=== PATIENT | male | born 2005 | race Asian ===

== ENCOUNTER 2024-05-12 13:42 | Observation (INO) ==
--- NOTE | 2024-05-12 14:21 | Emergency Department Note ---
History of Present Illness General Chief complaint: Abdominal Pain Stated complaint: SHARP ABD PAIN Time Seen by Provider: 05/12/24 14:03 Source: patient, RN notes reviewed, old records reviewed (Old medical records were attempted to be reviewed but there are no old records at this hospital. Nurse's notes were reviewed and I agree with.) and friends (Friends who are at the bedside) Mode of arrival: ambulatory Limitations: no limitations History of Present Illness Maximum Pain Intensity: 9 This patient 18-year-old male comes in with abdominal pain in the right groin he said he had GERD last night and then developed right lower abdominal/groin pain he says is not his testicle is no swelling of his testicle. He has had decreased appetite. no vomiting his bowels have been normal. no blood or melena in his stool . no dysuria or hematuria .he says it does feel little bit better when he lays still. Is worse with movement. No trauma or injury. No history of surgeries because his appendix. Past Med/Surg History Problem List (Updated 05/12/24 @ 15:59 by Bayron Andrade MD) Right groin pain (Acute) Abdominal pain (Acute) Incarcerated right inguinal hernia (Acute) Social History Smoking Status: Never smoker Preferred Language: Thai Feels Safe at Home: Yes Immunizations: Past med history denies any surgeries denies past medical history. Allergiesno known drug allergy Social historydoes not smoke or drink or use drugs. He is a [employer] student Review of Systems A total of 10 systems reviewed and were otherwise negative Physical Exam Vital Signs Vital Signs - 24 hr 05/12/24 13:45 Temperature 36.0 C L Temperature Source Temporal Artery Scan Pulse Rate 85 Pulse Rhythm Regular Pulse Strength Normal Respiratory Rate 20 Respiratory Effort / Characteristics Non-Labored Spontaneous Respiratory Depth Normal Respiratory Pattern Regular Blood Pressure 144/88 H Blood Pressure Mean 106 Blood Pressure Position Sitting Oxygen Delivery Method Room Air Sepsis Recent Fever Within 48 Hours No Sepsis New/Unexplained Change in Mental Status No Sepsis Action Taken by Nursing No Action Required General: Well developed well nourished young male who appears in no acute distress, breathing comfortably on room air. Normal speech HEENT: Normal cephalic atraumatic. Pupils are equal round and reactive to light. Extraocular movements are intact. Oropharynx is pink with moist mucous membranes. No swelling of the mouth lips or tongue. Neck: Supple with a midline trachea. No meningeal signs or stiffness, no JVD or bruits. No Stridor. Chest: Clear to auscultation bilaterally. No wheezes or rhonchi. No increased work of breathing. Heart: Regular rate and rhythm without murmurs or gallops. Abdomen: Soft, he is moderately tender in the right lower quadrant and to the groin. Nondistended without rebound guarding or rigidity. In the groin he has fullness on the right when compared to the left consistent with a hernia. It is very tender. it is not red or warm with gentle pressure, it does not reduce. The testicles are not tender or swollen themselves. Extremities: No cyanosis clubbing or edema. No calf tenderness or assymetry Spine/Back. Non tender to palpation. No CVA tenderness Skin: Good turgor without rashes. Neurologic exam: Nonfocal moving all 4 extremity symmetrically Course Administered Medications Discontinued Medications Sodium Chloride (Nss) 1,000 mls @ 999 mls/hr IV .Q1H1M ONE Stop: 05/12/24 15:16 Last Admin: 05/12/24 15:22 Dose: 999 mls/hr Documented By: CEF Cefazolin Sodium (Ancef 2000mg) 2,000 mg in 15 mls @ 3.75 mls/min IV ONCE ONE; Protocol Stop: 05/12/24 16:29 Last Admin: 05/12/24 16:20 Dose: 3.75 mls/min Documented By: [id number] Ioversol (Optiray 320 100ml) 90 ml IV ONCE ONE Stop: 05/12/24 15:09 Last Admin: 05/12/24 15:08 Dose: 90 ml Documented By: EDK Morphine Sulfate (Morphine Sulfate 2 Mg/Ml Carp) 2 mg IV NOW STA Stop: 05/12/24 14:17 Last Admin: 05/12/24 14:23 Dose: 2 mg Documented By: CEF Ondansetron HCl (Ondansetron Inj 2 Mg/Ml 2 Ml Vial) 4 mg IV NOW STA Stop: 05/12/24 14:17 Last Admin: 05/12/24 14:26 Dose: 4 mg Documented By: CEF Medical Decision Making Differential Diagnosis Hernia, incarcerated hernia, testicular torsion or abnormality, appendicitis, abscess Medical Records Attestation: I reviewed the patient's medical records. Home Medications Current Medication List: was personally reviewed by me Laboratory Data Attestation: I reviewed the patient's lab results. 05/12/24 13:55 05/12/24 13:55 Lab Results 05/12/24 05/12/24 Range/Units 13:55 15:20 WBC 9.38 (4.8-10.8) K/ul RBC 5.34 (4.70-6.10) M/uL Hgb 15.0 (14.0-18.0) g/dl Hct 43.4 (42.0-52.0) % MCV 81.3 (80.0-100.0) fL MCH 28.1 (25.0-34.0) pg MCHC 34.6 (32.0-36.0) g/dL RDW Std Deviation 34.7 L (36.4-46.3) fL RDW Coeff of Ori 11.9 (11.5-14.5) % Plt Count 389 (130-400) K/uL MPV 8.9 L (9.4-12.4) fL Immature Gran % (Auto) 0.4 % Neut % (Auto) 67.2 % Lymph % (Auto) 20.5 % [place] % (Auto) 7.0 % Eos % (Auto) 4.6 % Baso % (Auto) 0.3 % Neut # (Auto) 6.30 (1.40-6.50) K/uL Lymph # (Auto) 1.92 (1.20-3.40) K/uL [place] # (Auto) 0.66 H (0.11-0.59) K/uL Eos # (Auto) 0.43 (0.00-0.50) K/uL Baso # (Auto) 0.03 (0.00-0.20) K/uL Immature Gran # (Auto) 0.04 (0.01-0.20) K/uL Sodium 140 (136-145) mmol/L Potassium 3.7 (3.5-5.1) mmol/L Chloride 102 (98-107) mmol/L Carbon Dioxide 31 (21-32) mmol/L Anion Gap 7 (3-11) BUN 7 (6-23) mg/dl Creatinine 0.82 (0.6-1.4) mg/dl Est Cr Clr Drug Dosing 149.6 ml/min eGFR 129.77 BUN/Creatinine Ratio 8.5 L (10-20) Glucose 105 H (70-99(Fasting)) mg/dl Calcium 9.2 (8.6-10.3) mg/dl Total Bilirubin 0.8 (0.2-1.0) mg/dl AST 20 (13-39) U/L ALT 22 (7-52) U/L Alkaline Phosphatase 62 (34-104) U/L Total Protein 7.7 (6.0-8.3) gm/dl Albumin 4.7 (3.4-5.0) gm/dl Globulin 3.0 (2.5-4.0) gm/dl Albumin/Globulin Ratio 1.6 (0.9-2) Lipase 15 (11-82) U/L Urine Color Yellow Urine Appearance Clear (Clear) Urine pH 8.5 H (4.5-7.5) Ur Specific [place] 1.022 (1.000-1.030) Urine Protein Negative (Negative) Urine Glucose (UA) Negative (Negative) Urine Ketones Negative (Negative) Urine Blood Negative (Negative) Urine Nitrite Negative (Negative) Urine Bilirubin Negative (Negative) Urine Urobilinogen Negative (Negative) Ur Leukocyte Esterase Negative (Negative) Imaging Data Attestation: I personally reviewed and interpreted this imaging study as follows: My Impression: CAT scan of the abdomen and pelvisthere is an incarcerated hernia seen on the right Radiologist's Impression: Abdomen/Pelvis CT 05/12/24 14:16 CT OF THE ABDOMEN AND PELVIS WITH CONTRAST CLINICAL HISTORY: hernia/rt groin pain COMPARISON STUDY: None. TECHNIQUE: Following IV administration of 90 mL of Optiray, axial images of the abdomen and pelvis were obtained from the lung bases to the proximal femurs. Images were reviewed in the axial, sagittal, and coronal planes. IV contrast was administered without complication. Automated exposure control was utilized for the study. A dose lowering technique was utilized adhering to the principles of ALARA. CT DOSE: 1161.48 mGy.cm FINDINGS: Lung bases are unremarkable. No pneumatosis cirrhosis, free air or portal venous gas is present. Liver, spleen, adrenal glands, left kidney and pancreas are normal. There is no biliary or pancreatic ductal dilatation. There is no peripancreatic or pericholecystic infiltration. A 3 mm right lower pole renal calculus is present. There are no ureteral calculi. There is no hydronephrosis. Caliber and wall thickness of small and large bowel are normal. The appendix is normal. Trace fluid within the pelvis is present. A moderate- sized fat-containing right inguinal hernia is noted. There is moderate stranding as well as a small amount of fluid within the hernia sac, extending into the right hemiscrotum. IMPRESSION: 1. Moderate size fat-containing right inguinal hernia. Inflammation of the herniated fat and a small amount of fluid within the hernia sac. The findings suggest strangulation of the herniated fat. No bowel within the hernia sac. 2. Normal appendix. No bowel obstruction. No bowel wall thickening. 3. Trace fluid within the pelvis. 4. 3 mm right renal calculus. No ureteral calculi or hydronephrosis. ACT 112: Negative or not required by law. Electronically signed by: Baron Garza M.D. 05/12/2024 3:30 PM MDM Narrative This patient comes in as described above. he has been having abdominal pain in the right lower quadrant and groin. When I examine his groin he has fullness on the right concerning for hernia. It does not reduce with gentle force. IV access was established hydrated with 1 L IV normal saline bolus . he was kept n.p.o. labs were obtained. I ordered a CAT scan as well he also paged surgery early on to get them involved as well. I discussed the case with Dr. Browne. He did promptly come and see the patient in the ER. In the meantime the CAT scan did confirm the diagnosis of incarcerated hernia. He has normal renal function. There is no significant electrolyte or metabolic abnormalities. He has normal white count and he is not anemic. He has received IV fluids. Dr. Browne is going to take him to the operating room for surgery to reduce and fix the hernia. The patient was taken emergently to the OR for surgery. Impression & Plan Incarcerated right inguinal hernia, Abdominal pain, Right groin pain Discharge Plan Visit Data Chief Complaint: Abdominal Pain Stated Complaint: SHARP ABD PAIN ED Provider: Bayron Andrade Discharge Problem: Incarcerated right inguinal hernia, Abdominal pain, Right groin pain Patient Disposition: Admitted As Inpatient Discharge Instructions Interventions: ED Discharge Assessment Last Done: 05/12/24 15:37 Discharge Problem: Abdominal pain Qualifiers: Abdominal location: right lower quadrant Qualified Code(s): R10.31 - Right lower quadrant pain
[2024-05-12] MEDS: MoRPHine SULFATE 2 MG/ML CARP IV STA (14:23)
[2024-05-12] MEDS: ONDANSETRON INJ 2 MG/ML 2 ML VIAL IV STA (14:26)
[2024-05-12 14:29] LABS: Basophils # (auto) 0.03 K/uL (0.00-0.20); Basophils % (auto) 0.3 %; Eosinophils # (auto) 0.43 K/uL (0.00-0.50); Eosinophils % (auto) 4.6 %; Hematocrit (blood only) 43.4 % (42.0-52.0); Immature Granulocytes # (auto) 0.04 K/uL (0.01-0.20); Immature Granulocytes % (auto) 0.4 %; Lymphocytes # (auto) 1.92 K/uL (1.20-3.40); Lymphocytes % (auto) 20.5 %; Mean Corpuscular Hemoglobin 28.1 pg (25.0-34.0); Mean Corpuscular Hgb Conc 34.6 g/dL (32.0-36.0); Mean Corpuscular Volume 81.3 fL (80.0-100.0); Mean Platelet Volume 8.9 fL (9.4-12.4); Monocytes # (auto) 0.66 K/uL (0.11-0.59); Neutrophils % (auto) 67.2 %; Platelet Count 389 K/uL (130-400); RDW Coefficient of Variation 11.9 % (11.5-14.5); RDW Standard Deviation 34.7 fL (36.4-46.3); Red Blood Count 5.34 M/uL (4.70-6.10); White Blood Count 9.38 K/ul (4.8-10.8)
[2024-05-12 14:35] LABS: Albumin Globulin Ratio 1.6 (0.9-2); Albumin Level 4.7 gm/dl (3.4-5.0); BUN Creatinine Ratio 8.5 (10-20); Bilirubin,Total 0.8 mg/dl (0.2-1.0); Calcium 9.2 mg/dl (8.6-10.3); Creatinine Clr Calc Pharmacy 149.6 ml/min; Potassium 3.7 mmol/L (3.5-5.1); Total Protein 7.7 gm/dl (6.0-8.3)
[2024-05-12] MEDS: OPTIRAY 320 100ml IV ONE (15:08)
[2024-05-12] MEDS: SODIUM CHLORIDE 0.9% 1,000 ML IV ONE (15:22)
--- NOTE | 2024-05-12 15:33 | CT Scan Report ---
CT OF THE ABDOMEN AND PELVIS WITH CONTRAST CLINICAL HISTORY: hernia/rt groin pain COMPARISON STUDY: None. TECHNIQUE: Following IV administration of 90 mL of Optiray, axial images of the abdomen and pelvis we re obtained from the lung bases to the proximal femurs. Images were reviewed in the axial, sagittal, and coronal planes. IV contrast was administered without complication. Automated exposure control wa s utilized for the study. A dose lowering technique was utilized adhering to the principles of ALARA . CT DOSE: 1161.48 mGy.cm FINDINGS: Lung bases are unremarkable. No pneumatosis cirrhosis, free air or portal venous gas is pre sent. Liver, spleen, adrenal glands, left kidney and pancreas are normal. There is no biliary or panc reatic ductal dilatation. There is no peripancreatic or pericholecystic infiltration. A 3 mm right lo wer pole renal calculus is present. There are no ureteral calculi. There is no hydronephrosis. Calibe r and wall thickness of small and large bowel are normal. The appendix is normal. Trace fluid within the pelvis is present. A moderate-sized fat-containing right inguinal hernia is noted. There is moder ate stranding as well as a small amount of fluid within the hernia sac, extending into the right martin scrotum. IMPRESSION: 1. Moderate size fat-containing right inguinal hernia. Inflammation of the herniated fat and a small amount of fluid within the hernia sac. The findings suggest strangulation of the herniated fat. No fito wel within the hernia sac. 2. Normal appendix. No bowel obstruction. No bowel wall thickening. 3. Trace fluid within the pelvis. 4. 3 mm right renal calculus. No ureteral calculi or hydronephrosis. ACT 112: Negative or not required by law. Electronically signed by: Baron Garza M.D. 05/12/2024 3:30 PM
[2024-05-12] MEDS ORDERED: ePHEDrine sulfate 50 MG/ML AMP IV PRN ×2 (15:37→16:30)
[2024-05-12] MEDS ORDERED: ONDANSETRON INJ 2 MG/ML 2 ML VIAL IV PRN ×2 (15:37→16:30)
[2024-05-12] MEDS ORDERED: fentaNYL citrate PF 100 MCG/2 ML VIAL IV PRN ×2 (15:37→16:30)
[2024-05-12] MEDS ORDERED: ATROPINE SULFATE 0.1 MG/ML 10ML SYR IV PRN ×2 (15:37→16:30)
--- NOTE | 2024-05-12 15:37 | Anesthesiology Consultation ---
Date of Service May 12, 2024 Assessment & Plan Chart Review Chart Review: Acceptable Risk for Surgery and Patient NOT seen in Pre Admission Testing Consults Requested none History Surgery Operation Date: 05/12/24 16:00 Proposed Procedures p Open Right Inguinal Hernia Repair(Right) - Evangelist Browne, Height/Weight Height: 5 ft 10 in Weight: 85.6 kg Social History Smoking Status: Never smoker Physical Exam Vital Signs Last Vital Signs Temp 36.0 C L 05/12/24 13:45 Pulse 85 05/12/24 13:45 Resp 20 05/12/24 13:45 BP 144/88 H 05/12/24 13:45 O2 Del Method Room Air 05/12/24 13:45 Testing Laboratory Results 05/12/24 13:55 05/12/24 13:55
[2024-05-12] MEDS ORDERED: fentaNYL citrate PF 100 MCG/2 ML VIAL ONE (15:40)
[2024-05-12] MEDS ORDERED: MIDAZOLAM HCL 1 MG/ML 2ML VIAL ONE (15:40)
[2024-05-12] MEDS ORDERED: ARTIFICIAL TEARS OP OINT 3.5 GM TUBE ONE (15:41)
[2024-05-12 15:45] LABS: Appearance Urine Clear (Clear); Bilirubin Urine Negative (Negative); Blood Urine Negative (Negative); Color Urine Yellow; Glucose Urine UA Negative (Negative); Ketones Urine Negative (Negative); Leukocyte Esterase Urine Negative (Negative); Nitrite Urine Negative (Negative); Protein Urine Negative (Negative); Specific Gravity Urine 1.022 (1.000-1.030); Urobilinogen Urine Negative (Negative); pH Urine 8.5 (4.5-7.5)
[2024-05-12] MEDS ORDERED: ROCURONIUM BROMIDE 10 MG/ML 5 ML VIAL IV ONE (15:45)
[2024-05-12] MEDS ORDERED: SUCCINYLCHOLINE CHLORIDE 20 MG/ML 10 ML VIAL IV ONE ×2 (15:45)
[2024-05-12] MEDS ORDERED: PROPOFOL IV EMULSION 10 MG/ML 20 ML VIAL IV ONE (15:45)
--- NOTE | 2024-05-12 15:47 | History & Physical Report ---
Date of Service May 12, 2024 Assessment & Plan (1) Incarcerated right inguinal hernia: Plan: Patient with right groin pain since last night CT scan reading Moderate size fat-containing right inguinal hernia. Inflammation of the herniated fat and a small amount of fluid within the hernia sac. The findings suggest strangulation of the herniated fat. No bowel within the hernia sac. VSS , WBC wnl , Visable non reducible RIH. Recommending urgent surgical intervention in the form of an open right inguinal hernia repair with mesh with Dr. Browne. Risks and benefits reviewed, patient would like to proceed with surgical intervention. He will be admitted to surgical service post procedure for overnight observation and pain control. Patient seen with Dr. Browne as above. pt extremely uncomfortable. unable to reduce the hernia. discussed options/risks ( bleeding/infection/blood clots/injury to other organs etc...) questions answered. will proceed brooklynn with open RIH repair with mesh History of Present Illness Chief Complaint: Right groin pain Primary Care Provider: [facility] Patient is a pleasant 18 yo male with PMH GERD, that presented to [facility] ER today with c/o Right groin pain that started last night at 2100. He reports he has been taking OTC oral pain medication without relieve. No emesis, some nausea, denies fever/chills, CP, SOB. Developed a dry cough/dry mouth while in the ER. Denies prior surgical hx and has been NPO since last night. Past Med/Surg History Problem List (Updated 05/12/24 @ 15:44 by TAB Denny) Incarcerated right inguinal hernia Social History Smoking Status: Never smoker Preferred Language: Persian Feels Safe at Home: Yes Review of Systems Constitutional: no fever and no chills Eyes: no problem reported Respiratory: + cough; no dyspnea Cardiovascular: no chest pain Gastrointestinal: + nausea; no abdominal pain, no vomiting and no change in bowel habits Musculoskeletal: no muscle weakness Integumentary: no rash Psychiatric: no confusion Physical Exam Constitutional: cooperative; no acute distress and + uncomfortable Respiratory: normal respiratory effort and able to speak in complete sentences; no respiratory distress Cardiovascular: Rate/Rhythm: regular rate Gastrointestinal (Abdomen): Inspection/Auscultation: + visible herniation (Right inguinal ); abdomen not distended Percussion/Palpation: abdomen soft; no guarding Musculoskeletal: no cyanosis or clubbing, extremities motor strength 5/5 Skin: no rashes, warm and dry Psychiatric: Orientation: alert and oriented x 3 Results & Data Results & Data Vital Signs (Past 12 Hours) Vital Signs Temp Pulse Resp BP O2 Del Method 05/12/24 13:45 96.8 F L 85 20 144/88 H Room Air Diagnostic Findings [place], [place] [phone] CT Scan Report Patient: MUSA ANGELES Admit Date: 05/12/24 MR#: [id number] Address[address]: [address] Ac[address] ID:[id number] Address2: [address] Date: 2005 [facility] Zip: [place] [address] Age: 18 Location: ED Sex: M Room/Bed: Att Phy: Diagnosis: SHARP ABD PAIN Bridget Phy: [facility] Service Date: 05/12/24 Fam Phy: Interpreting Phy: Baron Garza MDAit Phy: Ordering Phy: Bayron Andrade M.D. cc: ~ CT OF THE ABDOMEN AND PELVIS WITH CONTRAST CLINICAL HISTORY: hernia/rt groin pain COMPARISON STUDY: None. TECHNIQUE: Following IV administration of 90 mL of Optiray, axial images of the abdomen and pelvis were obtained from the lung bases to the proximal femurs. Images were reviewed in the axial, sagittal, and coronal planes. IV contrast was administered without complication. Automated exposure control was utilized for the study. A dose lowering technique was utilized adhering to the principles of ALARA. CT DOSE: 1161.48 mGy.cm FINDINGS: Lung bases are unremarkable. No pneumatosis cirrhosis, free air or portal venous gas is present. Liver, spleen, adrenal glands, left kidney and pancreas are normal. There is no biliary or pancreatic ductal dilatation. There is no peripancreatic or pericholecystic infiltration. A 3 mm right lower pole renal calculus is present. There are no ureteral calculi. There is no hydronephrosis. Caliber and wall thickness of small and large bowel are normal. The appendix is normal. Trace fluid within the pelvis is present. A moderate- sized fat-containing right inguinal hernia is noted. There is moderate stranding as well as a small amount of fluid within the hernia sac, extending into the right hemiscrotum. IMPRESSION: 1. Moderate size fat-containing right inguinal hernia. Inflammation of the herniated fat and a small amount of fluid within the hernia sac. The findings suggest strangulation of the herniated fat. No bowel within the hernia sac. 2. Normal appendix. No bowel obstruction. No bowel wall thickening. 3. Trace fluid within the pelvis. 4. 3 mm right renal calculus. No ureteral calculi or hydronephrosis. ACT 112: Negative or not required by law. Electronically signed by: Baron Garza M.D. 05/12/2024 3:30 PM Dictated: 05/12/241523 Transcribed: 05/12/241523 CBC w Diff Results Results CBC w Diff Results: RBC 5.34 M/uL (4.70-6.10) 05/12/24 WBC 9.38 K/ul (4.8-10.8) 05/12/24 Hgb 15.0 g/dl (14.0-18.0) 05/12/24 Hct 43.4 % (42.0-52.0) 05/12/24 MCV 81.3 fL (80.0-100.0) 05/12/24 MCH 28.1 pg (25.0-34.0) 05/12/24 MCHC 34.6 g/dL (32.0-36.0) 05/12/24 RDW Standard Deviation 34.7 fL (36.4-46.3) L 05/12/24 RDW Coefficient of Variation 11.9 % (11.5-14.5) 05/12/24 Plt Count 389 K/uL (130-400) 05/12/24 MPV 8.9 fL (9.4-12.4) L 05/12/24 Neutrophils (%) (Auto) 67.2 % 05/12/24 Lymphocytes (%) (Auto) 20.5 % 05/12/24 Monocytes # (Auto) 0.66 K/uL (0.11-0.59) H 05/12/24 Eosinophils # (Auto) 0.43 K/uL (0.00-0.50) 05/12/24 Immature Granulocyte % (Auto) 0.4 % 05/12/24 Neutrophils # (Auto) 6.30 K/uL (1.40-6.50) 05/12/24 Lymphocytes # (Auto) 1.92 K/uL (1.20-3.40) 05/12/24 Monocytes # (Auto) 0.66 K/uL (0.11-0.59) H 05/12/24 Eosinophils # (Auto) 0.43 K/uL (0.00-0.50) 05/12/24 Basophils # (Auto) 0.03 K/uL (0.00-0.20) 05/12/24 Immature Granulocyte # (Auto) 0.04 K/uL (0.01-0.20) 4 PG Care Time/CCT Total # of Minutes Spent Total Time Spent with Patient: Total time spent is greater than 50% in coordination of care (as documented) at patient's floor/unit and/or counseling patient: Coding Level of Care Code 64649 INT INP/OBS CARE 140MIN Diagnoses Incarcerated right inguinal hernia K40.30
[2024-05-12] MEDS ORDERED: ceFAZolin 330 MG/ML 1 GM VIAL ONE ×2 (16:18)
[2024-05-12] MEDS: ceFAZolin 2000MG 2,000 MG/15 ML SYR IV ONE (16:20)
[2024-05-12] MEDS ORDERED: DEXAMETHASONE SOD INJ 4 MG/ML VIAL ONE (16:30)
[2024-05-12] MEDS ORDERED: ONDANSETRON INJ 2 MG/ML 2 ML VIAL ONE (16:30)
[2024-05-12] MEDS ORDERED: SUGAMMADEX SODIUM 200 MG/2 ML VIAL IV ONE (16:51)
[2024-05-12] MEDS: BUPIVACAINE/EPINEPHRINE 0.5% MPF 1:200,000 30 ML VIAL ONE (17:01)
--- NOTE | 2024-05-12 17:30 | Operative Report ---
PG Post Operative Report Pre & Post Diagnosis Operation Date: 05/12/24 16:00 Pre-Op Diagnosis: Incarcerated right inguinal hernia Post-Op Diagnosis: Incarcerated right inguinal hernia I identified the patient and participated in the time-out.: Yes Procedure Operation Date: 05/12/24 16:00 Actual Procedures p Open Right Inguinal Hernia Repair(Right) - Evangelist Browne DO Surgeon Evangelist Browne DO Energy Efficiency Finance Manager robert zacarias Estimated Blood Loss 10 Findings Consistent with Post-Op Diagnosis Specimens none Description of Procedure After informed consent was obtained the patient was taken the operating room and placed in supine position. After successful placement of the laryngeal mask airway the groin was shaved and sterilely prepped and draped in usual fashion. An inguinal incision was made with a 15 blade scalpel and carried down through the soft tissue using electrocautery. The external oblique aponeurosis was skeletonized. A fresh blade was used to make an incision and then Metzenbaum scissors were used to extend this distally through the external ring as well as for several centimeters proximally. Once in the inguinal canal I used blunt finger dissection to free up the cord and cord structures. Once I did this I was able to easily manually reduce the hernia contents. I was then able to gently tease the cord off of the pubic bone and placed a [place] drain around it. There was no evidence of a direct hernia. We inspected the cord and cord structures using blunt dissection with small amounts of electrocautery. There was a large thickened chronic type hernia sac. We dissected this back to its neck and then dunked it back into the abdominal cavity. It was able to stay self reduced. We then thoroughly irrigated the wound. I used a polypropylene addison-holed mesh as an onlay. It was secured distally to Boris's ligament, laterally along the shelving portion of Poupart's ligament and medially along the midline musculature. 0 Ethibond was used for the suturing. The "arms" of the mesh were wrapped around behind the cord and cord structures and again secured to underlying muscle. The mesh laid nice and flat and tension-free and did not impinge on the cord structures themselves. We thoroughly irrigated the wound. There was adequate hemostasis. I injected Marcaine around the edges of the mesh for postoperative analgesia. We then closed the external oblique aponeurosis with 2-0 Vicryl in a running fashion. Soft tissue was irrigated and closed in multiple layers using 3-0 Vicryl for the deep layers and 4-0 Monocryl for the skin. Some additional Marcaine was injected around the skin incision. We then used a skin glue as a dressing. The patient was awaken extubated and transferred to recovery in stable condition. My EVENT SALES MANAGER grooming assistant was present throughout the entire procedure. She helped prep the patient. Helped with retraction throughout the case to aid my dissection, assisted with wound closure as well as dressing placement. I attest to the content of the Intraoperative Record and any orders documented therein. Any exceptions are noted below. I attest to the content of the Intraoperative Record and any orders documented therein. Any exceptions are noted below.
--- NOTE | 2024-05-12 17:52 | Anesthesiology Progress Note ---
Date of Service May 12, 2024 Anesthesia Post Procedure Vital Signs Vital Signs: Temp Pulse Pulse Resp BP BP Pulse Ox 05/12/24 17:30 36 C L 118 H 22 115/49 L 100 05/12/24 13:45 36.0 C L 85 20 144/88 H O2 Del Method O2 Flow Rate 05/12/24 17:30 Oxymask 8 05/12/24 13:45 Room Air Pain Intensity Right Lower Abdomen: Pain Intensity: 5 Transfer of Care Handoff Completed per policy Notes Mental Status: alert / awake / arousable Patient Amnestic to Procedure: Yes Nausea / Vomiting: adequately controlled Pain: adequately controlled Airway Patency, RR, SpO2: stable & adequate BP & HR: stable & adequate Hydration State: stable & adequate Anesthetic Complications: no major complications apparent and Pt Satisfied with anesthetic care
[2024-05-12] MEDS ORDERED: MoRPHine SULFATE 2 MG/ML CARP IV PRN (18:28)
[2024-05-12] MEDS ORDERED: ACETAMINOPHEN 325 MG TAB PO PRN (18:28)
[2024-05-12] MEDS ORDERED: MoRPHine SULFATE 4 MG/ML 1 ML CARP\\VIAL IV PRN (18:28)
[2024-05-12] MEDS ORDERED: oxyCODONE HCL IR 5 MG TAB (IMMEDIATE RELEASE) PO PRN (18:28)
[2024-05-12] MEDS ORDERED: ACETAMINOPHEN 1,000 MG/100 ML VIAL IV PRN (18:28)
[2024-05-12 18:29] VITALS: RESP 16
[2024-05-12] MEDS: Patient's ALLERGY Info needs ENTERED STA (18:51)
[2024-05-13] MEDS: oxyCODONE HCL IR 5 MG TAB (IMMEDIATE RELEASE) PO PRN (01:33)
[2024-05-13] MEDS: ONDANSETRON INJ 2 MG/ML 2 ML VIAL IV PRN (01:34)
[2024-05-13 02:53] VITALS: O2SAT 98
[2024-05-13 06:57] LABS: Basophils # (auto) 0.02 K/uL (0.00-0.20); Basophils % (auto) 0.1 %; Eosinophils # (auto) 0.01 K/uL (0.00-0.50); Eosinophils % (auto) 0.1 %; Hematocrit (blood only) 41.4 % (42.0-52.0); Hemoglobin 14.1 g/dl (14.0-18.0); Immature Granulocytes # (auto) 0.08 K/uL (0.01-0.20); Immature Granulocytes % (auto) 0.5 %; Lymphocytes # (auto) 1.14 K/uL (1.20-3.40); Lymphocytes % (auto) 7.8 %; Mean Corpuscular Hgb Conc 34.1 g/dL (32.0-36.0); Mean Corpuscular Volume 82.1 fL (80.0-100.0); Mean Platelet Volume 8.8 fL (9.4-12.4); Monocytes % (auto) 6.1 %; Neutrophils # (auto) 12.54 K/uL (1.40-6.50); Neutrophils % (auto) 85.4 %; Platelet Count 384 K/uL (130-400); RDW Standard Deviation 36.1 fL (36.4-46.3); Red Blood Count 5.04 M/uL (4.70-6.10); White Blood Count 14.69 K/ul (4.8-10.8)
[2024-05-13 07:25] LABS: BUN Creatinine Ratio 9.9 (10-20); Calcium 9.3 mg/dl (8.6-10.3); Creatinine Clr Calc Pharmacy 166.7 ml/min; Potassium 4.4 mmol/L (3.5-5.1)
[2024-05-13 07:58] VITALS: BP 128/74; PULSE 110; TEMP 98.2
--- NOTE | 2024-05-13 08:59 | Surgery Progress Note ---
Date of Service May 13, 2024 Assessment & Plan (1) Incarcerated right inguinal hernia: Plan: POD 1 open RIH repair denies pain, tolerating reg diet +flatus , VSS mild tachycardia 110, afebrile WBC 14 likely reactive to surgery, no signs infection at wound , covered with dermabond desires d/c return precautions given/follow recs Admission and Anticipated Discharge Date Admission Date: May 12, 2024 Subjective pt feeling well no pain , no n/v , no f/c Review of Systems Constitutional: no fever and no chills Eyes: no problem reported Respiratory: no dyspnea Cardiovascular: no chest pain Gastrointestinal: no abdominal pain, no bloating, no nausea and no vomiting Musculoskeletal: no muscle weakness Integumentary: no rash Psychiatric: no confusion Physical Exam Constitutional: cooperative; no acute distress Respiratory: normal respiratory effort and able to speak in complete sentences; no respiratory distress Cardiovascular: Rate/Rhythm: regular rate Gastrointestinal (Abdomen): Inspection/Auscultation: abdomen not distended Percussion/Palpation: abdomen soft; no guarding Musculoskeletal: no cyanosis or clubbing, extremities motor strength 5/5 Skin: no rashes, warm and dry Psychiatric: Orientation: alert and oriented x 3 Results & Data Vital Signs (Past 12 Hours) Vital Signs Temp Pulse Resp BP Pulse Ox O2 Del Method 05/13/24 07:57 98.2 F 110 H 16 128/74 98 Room Air 05/13/24 02:52 98.6 F 112 H 16 131/75 98 Room Air 05/12/24 21:21 97.7 F 114 H 16 142/85 H 97 Room Air Results CBC w Diff Results: RBC 5.04 M/uL (4.70-6.10) 05/13/24 WBC 14.69 K/ul (4.8-10.8) H 05/13/24 Hgb 14.1 g/dl (14.0-18.0) 05/13/24 Hct 41.4 % (42.0-52.0) L 05/13/24 MCV 82.1 fL (80.0-100.0) 05/13/24 MCH 28.0 pg (25.0-34.0) 05/13/24 MCHC 34.1 g/dL (32.0-36.0) 05/13/24 RDW Standard Deviation 36.1 fL (36.4-46.3) L 05/13/24 RDW Coefficient of Variation 12.0 % (11.5-14.5) 05/13/24 Plt Count 384 K/uL (130-400) 05/13/24 MPV 8.8 fL (9.4-12.4) L 05/13/24 Neutrophils (%) (Auto) 85.4 % 05/13/24 Lymphocytes (%) (Auto) 7.8 % 05/13/24 Monocytes # (Auto) 0.90 K/uL (0.11-0.59) H 05/13/24 Eosinophils # (Auto) 0.01 K/uL (0.00-0.50) 05/13/24 Immature Granulocyte % (Auto) 0.5 % 05/13/24 Neutrophils # (Auto) 12.54 K/uL (1.40-6.50) H 05/13/24 Lymphocytes # (Auto) 1.14 K/uL (1.20-3.40) L 05/13/24 Monocytes # (Auto) 0.90 K/uL (0.11-0.59) H 05/13/24 Eosinophils # (Auto) 0.01 K/uL (0.00-0.50) 05/13/24 Basophils # (Auto) 0.02 K/uL (0.00-0.20) 05/13/24 Immature Granulocyte # (Auto) 0.08 K/uL (0.01-0.20) 4 PG Care Time/CCT Total # of Minutes Spent Total Time Spent with Patient: Total time spent is greater than 50% in coordination of care (as documented) at patient's floor/unit and/or counseling patient: Coding Level of Care Code 48392 Post Operative Follow-Up Diagnoses Incarcerated right inguinal hernia K40.30
--- NOTE | 2024-05-13 11:59 | Discharge Summary ---
Date of Service May 13, 2024 Admission HPI Per Admitting Provider Patient is a pleasant 18 yo male with PMH GERD, that presented to [facility] ER today with c/o Right groin pain that started last night at 2100. He reports he has been taking OTC oral pain medication without relieve. No emesis, some nausea, denies fever/chills, CP, SOB. Developed a dry cough/dry mouth while in the ER. Denies prior surgical hx and has been NPO since last night. Principal Diagnosis Incarcerated Right inguinal hernia Discharge Exam Constitutional cooperative and comfortable; no acute distress Respiratory normal respiratory effort and able to speak in complete sentences; no respiratory distress Cardiovascular Rate/Rhythm: regular rate Gastrointestinal (Abdomen) Inspection/Auscultation: abdomen not distended Percussion/Palpation: abdomen soft; no guarding Musculoskeletal no cyanosis or clubbing, extremities motor strength 5/5 Skin no rashes, warm and dry Psychiatric Orientation: alert and oriented x 3 Discharge Data Allergies Allergy/AdvReac Type Severity Reaction Status Date / Time No Known Allergies Allergy Verified 05/12/24 17:10 Consultations 05/12/24 15:31 ED Decision to Admit Stat Procedures Performed Operation Date: 05/12/24 16:00 Actual Procedures p Open Right Inguinal Hernia Repair(Right) - Evangelist Browne, Ordered Studies 05/12/24 14:16 CT abd pelvis IV con only Stat Hospital Course (1) Incarcerated right inguinal hernia: This is a 19 yo male who presented to the [facility] ED on 05/12/24 with abdominal pain. Workup in the ED showed a CT a/p concerning for right sided inguinal hernia with Inflammation of the herniated fat and a small amount of fluid within the hernia sac. The findings suggest strangulation of the herniated fat. . The patient was tender to palpation in the RLQ. Patient made NPO with IVF and booked for the OR. On 05/12/24 the patient went to the OR with Dr Browne for a open right inguinal hernia repair with mesh. The patient tolerated the procedure well, see operative report for full details. Post operatively the patient's diet was advanced, pain managed on prn meds, and incisions clean/dry/intact. On POD#1 the patient was deemed stable for discharge to home and was given return precautions and follow up recommendations, all questions answered. Total Time Total Time Spent Total Time Spent (In Minutes): 10 Discharge Plan Discharge Items Patient Disposition: Home - Self-Care Reason For Visit: [facility] Discharge Diagnosis: incarcerated right inguinal hernia Activity: Per Instructions section Lifting: No more than 10 pounds Bathing Comment: you can shower , no soaking in pools or baths for 2 weeks Exercise/Sports: Wait until after follow-up appointment Driving/Machine Use: no driving if taking narcotic pain medication Non-emergency contact: Surgeon Call non-emergency contact if: you have any medication questions, your symptoms worsen, your temperature is above 101, your wound has increased redness, your wound has increased drainage and your wound pain has increased Follow-up/Referrals: Evangelist Browne DO [Surgeon] - 06/05/24 11:30 am (call office for follow up in 2 weeks ) [facility] [Primary Care Provider] - (follow up with [facility]) Diet: Regular Addtl Attending Provider Instructions: You have surgical glue called dermabond on your surgical site incisions. You may shower with this on. This will tend to come off within a couple of weeks. Do not pick at it. SPECIAL CARE INSTRUCTIONS: * You may shower 05/13 . NO soaking in pools or baths for 2 weeks * No lifting greater than 10lbs. No exercise until cleared by surgeon. Light walking is accepted. * No driving while taking narcotic pain medication * No drinking alcohol while taking narcotic pain medication * May use Ibuprofen/Tylenol over the counter for pain as tolerated. Do not exceed 3grams of Tylenol per 24 hours * Expect some swelling and bruising. * Diet regular Call your doctor if: * Temperature above 101 degrees, nausea/vomiting, fever/chills * Pain not relieved by pain medicine ordered * There is increased drainage or redness from any incision * You have any unanswered questions or concerns [phone]. FOLLOW UP VISIT: If not already scheduled, please call the office for a follow-up visit. Office Pending Studies at Discharge: No Stand-Alone Forms: [employer], Work/School Release Medications and DC Order Prescriptions: New oxycodone 5 mg tablet 5 - 10 mg PO .[id number] MDD no more than 6 tabs in 24hours PRN (Reason: pain) Qty: 15 0RF Discharge Orders: Discharge Order (Routine); Ordered 05/13/24 Ordered By: Karl Cameron/Other Patient Handouts: Open Hernia Repair Dc Admission Data Admit Date/Time: 05/12/24 17:10 Attending Provider: Evangelist Browne Admit Provider: Evangelist Browne Primary Care Provider: [facility] Other Providers: Evangelist Browne Other Interventions: Discharge Summary Assessment (RN) Last Done: 05/13/24 09:27 Coding Level of Care Code 32199 IN/OBS DISCH 30 MIN/LESS Diagnoses Incarcerated right inguinal hernia K40.30
== END 2024-05-13 10:20 | disposition home or self-care (01) ==
LOC: ED 13:42 → OR 15:57 → 3E 15:57
DX: K40.30 Unilateral inguinal hernia, with obstruction, without gangrene, not specified as recurrent